=== PATIENT | female | born 1950 | race Caucasian/White ===

== ENCOUNTER 2016-08-24 08:56 | Observation (INO) | payer MEDICARE ==
[~2016-08-24] VITALS: Ht 162.6 cm; Wt 90.2 kg
[~2016-08-24 08:56] MED LIST: ESTR1TAB PO; LOVA20TA PO
[2016-08-24] MEDS ORDERED: PROPOFOL 200 MG/20 ML AMP IV ONE ×2 (09:04→12:00)
[2016-08-24] MEDS ORDERED: ONDANSETRON HCL 4 MG/2 ML VIAL IV PUSH ONE ×2 (09:04→12:00)
[2016-08-24] MEDS: LACTATED RINGER'S 1000 ML IV SCH ×2 (09:30→16:00)
[2016-08-24 09:31] VITALS: BP 128/76; PULSE 65; RESP 16; TEMP 98.4; O2SAT 98
[2016-08-24] MEDS ORDERED: CLINDAMYCIN 600 MG/NS 100 ML IV SCH ×2 (09:45)
[2016-08-24] MEDS ORDERED: GENTAMICIN INJ 120 MG in SODIUM CHLORIDE 0.9% INJ 100 ML IV SCH (09:45)
[2016-08-24 09:51] LABS: AUTOMATED NEUTROPHIL # 3.5 TH/MM3 (1.8-7.7); BASOPHIL % 0.6 % (0.0-2.0); EOSINOPHIL # 0.1 TH/MM3 (0-0.4); EOSINOPHIL % 1.5 % (0.0-4.0); HEMATOCRIT 39.3 % (35.0-46.0); HEMO FLAGS DIFF FINAL; LYMPH % 28.2 % (9.0-44.0); LYMPHOCYTE # 1.6 TH/MM3 (1.0-4.8); MEAN CORPUSCULAR HEMOGLOBIN 32.1 PG (27.0-34.0); MEAN CORPUSCULAR HGB CONC 34.5 % (32.0-36.0); MONO % 7.9 % (0.0-8.0); NEUT % 61.8 % (16.0-70.0); PLATELET COUNT 253 TH/MM3 (150-450); RED BLOOD COUNT 4.22 MIL/MM3 (4.00-5.30); RED CELL DISTRIBUTION WIDTH 12.3 % (11.6-17.2); WHITE BLOOD COUNT 5.7 TH/MM3 (4.0-11.0)
[2016-08-24] MEDS ORDERED: SODIUM CHLORIDE 0.9% 20 ML VIAL ONE ×2 (09:51→10:36)
[2016-08-24 09:56] LABS: BACTERIA, URINE FEW /hpf; BLOOD, URINE NEG (NEG); COMMENT (UR) CULT NOT INDICATED; CULTURE IF INDICATED CULT NOT INDICATED; GLUCOSE,URINE NEG (NEG); KETONE, URINE NEG (NEG); MUCUS URINE FEW /lpf (OCC); NITRITE,URINE NEG (NEG); PH, URINE 5.5 (5.0-8.5); SQUAMOUS EPITHELIAL CELL URINE <1 /hpf (0-5); URINE COLOR YELLOW (YELLW/STRAW)
[2016-08-24] MEDS ORDERED: ESTROGENS CONJUGATED VAG CREA 15 APPL/30 GM TUBE ONE ×2 (09:57→18:05)
[2016-08-24] MEDS ORDERED: MIDAZOLAM HCL 2 MG/2 ML VIAL ONE ×2 (10:00→18:39)
[2016-08-24] MEDS ORDERED: INSULIN HUMAN REGULAR 1,000 UNITS/10 ML VIAL SQ PRN (10:00)
[2016-08-24] MEDS ORDERED: ACETAMINOPHEN 1000 MG/100 ML VIAL IV ONE (10:00)
[2016-08-24] MEDS ORDERED: SODIUM CHLORID 0.9% 500 ML IV SCH (10:00)
[2016-08-24] MEDS ORDERED: DEXAMETHASONE SOD PHOS 4 MG/ML VIAL ONE (10:00)
[2016-08-24] MEDS ORDERED: METOPROLOL TARTRATE 25 MG TAB PO PRN (10:00)
[2016-08-24] MEDS ORDERED: FAMOTIDINE 20 MG/2 ML VIAL ONE (10:00)
[2016-08-24] MEDS ORDERED: fentaNYL CITRATE 250 MCG/5 ML AMP ONE (10:07)
[2016-08-24] MEDS ORDERED: VASOPRESSIN INJ 20 UNITS/ML VIAL ONE (10:37)
[2016-08-24] MEDS: KETOROLAC TROMETHAMINE 30 MG/ML (IVP) VIAL IV PUSH SCH ×2 (11:55→14:42)
[2016-08-24] MEDS ORDERED: ESTROGENS CONJUGATED VAG CREA 15 APPL/30 GM TUBE PV ONE (12:30)
[2016-08-24] MEDS ORDERED: DO NOT ADM ANY ANTICOAGULANT DRUGS XX PRN (13:15)
[2016-08-24] MEDS ORDERED: ONDANSETRON HCL 4 MG/2 ML VIAL IV PUSH PRN (13:15)
[2016-08-24] MEDS ORDERED: *morphine SULFATE 8 MG/ML PERIprocedure ONLY ONE (14:39)
[2016-08-24 16:56] LABS: HEMATOCRIT 37.6 % (35.0-46.0); REVIEW FLAG FINAL
[2016-08-24] MEDS ORDERED: GENTAMICIN SULFATE 80 MG/2 ML VIAL ONE (17:46)
[2016-08-24] MEDS ORDERED: CLINDAMYCIN PHOS 600 MG/4 ML VIAL ONE (17:46)
--- NOTE | 2016-08-24 17:49 | EKG ---
Date Performed: 08/24/2016 Time Performed: 09:25:00 PTAGE: 65 years EKG: Sinus rhythm MARKED LEFT AXIS DEVIATION VOLTAGE CRITERIA FOR LVH ABNORMAL ECG NO PREVIOUS TRACING DOCTOR: Gabriella Gramajo Interpretating Date/Time 08/24/2016 17:47:50
[2016-08-24 20:30] VITALS: BP 122/58; PULSE 71; RESP 17; TEMP 96.5; O2SAT 98
[2016-08-25] VITALS (8 sets, daily range): BP systolic 91–119; BP diastolic 49–57; PULSE 69–82; RESP 14–16; TEMP 96.2–97.5; O2SAT 97–99
[2016-08-25] MEDS: KETOROLAC TROMETHAMINE 30 MG/ML (IVP) VIAL IV PUSH SCH (00:06)
[2016-08-25] MEDS: traMADol HCL 50 MG TAB PO PRN ×3 (12:20→23:26)
--- NOTE | 2016-08-25 13:53 | HHI.PR ---
Subjective Remarks 65 y/o had multiple vaginal procedures yesterday: vaginal sacrocolpopexy, anterior and posterior colporrhaphy with graft, perineorrhaphy. About 4 hrs after surgery when preparing transfer to floor, PACU nurse noted patient bled through her vaginal packing. She was taken back to the OR, had packing removed and vagina was explored. Because the sacrocolpopexy was high and tight, exposure of the right lateral incision caused abrasion of the midline/left incision. A 2 cm gap in the right vaginal iscision was closed folllowed by oversewing of any abraded areas. The packing was removed this morning. An hour later the patient was unable to void, but bladder scan showed only 110 cc in the bladder. The patient complains of soreness high and medial on the right buttock when sitting, but sat on commode without discomfort. Wants to go home to her own environment. Objective Vital Signs Date Time Temp Pulse Resp B/P Pulse Ox O2 Delivery O2 Flow Rate FiO2 08/25/16 12:00 96.2 82 16 95/54 99 08/25/16 08:00 96.9 78 16 105/57 98 08/25/16 04:05 16 08/25/16 04:00 97.0 69 16 91/49 97 08/25/16 00:00 96.5 70 16 92/51 97 08/24/16 20:30 96.5 71 17 122/58 98 08/24/16 20:00 97.5 72 16 125/71 96 Room Air 08/24/16 19:45 67 17 127/72 100 Room Air 08/24/16 19:30 70 17 120/76 100 Nasal Cannula 2 08/24/16 19:15 71 14 126/76 100 Nasal Cannula 2 08/24/16 19:00 71 14 129/73 99 Nasal Cannula 3 08/24/16 18:50 97.5 85 14 135/72 98 Nasal Cannula 3 08/24/16 17:15 64 14 132/67 96 08/24/16 16:31 97.5 67 14 130/71 97 08/24/16 16:30 67 13 130/71 97 Room Air 08/24/16 16:15 97.5 85 13 129/69 97 Room Air 08/24/16 16:00 73 12 136/75 99 08/24/16 15:00 61 12 138/77 98 08/24/16 14:30 60 12 140/80 98 08/24/16 14:00 58 12 155/74 99 08/24/16 13:45 62 12 154/71 99 I/O 08/24/16 08/24/16 08/24/16 08/25/16 08/25/16 08/25/16 07:00 15:00 23:00 07:00 15:00 23:00 Intake Total 1300 ml 2245 ml 240 ml Output Total 375 ml 1565 ml 550 ml 350 ml Balance 925 ml 680 ml -310 ml -350 ml Intake Oral 545 ml 240 ml IV Total 1000 ml Other 1300 ml 700 ml Output Urine Total 1375 ml 550 ml 350 ml Estimated Blood Loss 75 ml 100 ml Other 300 ml 90 ml Bladder Scan Volume Amount 108 ml Result Diagram: 08/24/16 1630 Other Results Packing without fresh blood or clots. Objective Remarks Patient is clear to auscultation. Abdomen is soft. Buttocks examined without ecchymosis or lesion. Patient is vague about site of pain, being high and medial in right buttock. Medications and IVs Patient has been refusing pain medication and even anti-inflammatory. Her friend reports she complains of discomfort, then refuses medication. Encouraged regular use of anti-inflammatory, And Tramadol when pain exceeds Toradol relief. Assessment and Plan Discussed Condition With Patient and her friend Varshanehemiah Kate. Discharge Planning Patient is asked to remain in hospital another night for observation. If not improving in pelvic discomfort with progression of activity, I will recommend removal of her sutures. Radha Andrews MD Aug 25, 2016 13:53
[2016-08-25] MEDS ORDERED: ALPRAZolam 0.5 MG TAB PO PRN (14:00)
[2016-08-25] MEDS ORDERED: MAGNESIUM HYDROXIDE SUSP 30 ML CUP PO PRN (14:00)
--- NOTE | 2016-08-25 21:14 | MP ---
cc: RADHA ANDREWS MD DATE OF SURGERY: 08/25/2016. PREOPERATIVE DIAGNOSIS: Vaginal vault prolapse, enterocele, rectocele, cystocele. POSTOPERATIVE DIAGNOSIS: Vaginal vault prolapse, enterocele, rectocele, cystocele plus perineocele. OPERATIVE PROCEDURE PERFORMED: 1. Vaginal sacral colpopexy 2. anterior and posterior repair with graft material. 3. Enterocele repair. 4. Perineoplasty. SURGEON: Radha Andrews M.D. ANESTHESIA: Dr. Giraldo, general endotracheal anesthesia. COMPLICATIONS: None. ESTIMATED BLOOD LOSS: 75 cc. SPECIMENS: None. INDICATIONS FOR THE PROCEDURE: This 65-year-old has recently retired and has been bothered by a protruding vaginal vault for some time. She requests repair and understands the different surgical approaches and the pros and cons. FINDINGS: At the time of surgery, the patient was found to have a large enterocele. In addition, once under anesthesia with muscle relaxation, the rectocele was much more pronounced as was the perineocele. It was decided to incorporate all of these in the repair. DESCRIPTION OF THE PROCEDURE IN DETAIL: The patient was taken to the operating room and placed supine on the operating room table. After general endotracheal anesthetic, she was prepped and [facility] and a Morris catheter was placed. A weighted vaginal speculum was placed in the vagina and the sacrospinous ligament was palpated. The vaginal side wall was reached through the rectocele incision because it was noted that the rectocele was far more pronounced under anesthesia; therefore dilute vasopressin and saline were used to inject the entire posterior vaginal wall, right vaginal sidewall and anterior vaginal wall. The patient's scar from previous hysterectomy was identified and an incision was made from the vaginal introitus up to that scar. The incision was T'd at the distal end. The mucosa was dissected off the connective tissue sparing as much connective tissue as possible. The redundant edges were cut, In exposing the rectocele, it became evident that the patient's enterocele was quite large. Further dissection allowed delivery of the enterocele sac which was then opened to make sure that there was no bowel contained. It was closed as high as possible with a pursestring suture of #0 Vicryl. The rectocele could then be repaired, but first the vaginal side wall was dissected bluntly from the right sulcus. The ischial spine was palpated as was the sacrospinous ligament. Using a Capio device, a #1 Prolene was placed two fingerbreadths medial to the ischial spine on the sacrospinous ligament. Traction revealed an excellent purchase of that tissue. A surgeon's knot was tied to secure the suture to the sacrospinous ligament. Then using the attached needle, the vaginal mucosa was perforated and in the right fornix and then using a ten technique, the vagina was tied against the sacrospinous ligament producing good resolution of the cuff prolapse. The rectocele repair was then continued with reapproximation of the rectal mucosa; however, prior to this because of the large rectocele, Coloplast Human Graft Material was placed in the lower two thirds of the rectocele defect and secured with interrupted #0 Vicryl sutures to the lateral sulci bilaterally. The mucosa was then closed in running locked fashion overlying this rectocele and covering the graft material completely. A separate T-shaped incision was then made in the anterior vaginal wall after injection with more dilute Pitressin. The mucosa was dissected carefully again sparing as much connective tissue as possible. In the case of her anterior wall, there was less prolapse and after cutting redundant tissue, the incision was closed from the apex out to the urethra in running locked fashion without undue tension or plication. At this point, it was evident that the patient's vaginal opening was still patulous. Therefore a separate incision was made in the perineum after injection with more vasopressin. The bulbocavernosus of the labia majora were identified and rejoined at the perineal body with an 0 Vicryl suture. Three small subcutaneous bites were required to buttress the perineal body inferior to this suture. Then the first 3-0 Monocryl was used subcuticularly to reapproximate the mucosal edges on the perineum. The procedure then being satisfactory with good vaginal support, a packing was placed in the vagina to encourage healing and hemostasis. The patient was awakened and transferred to the recovery room breathing on her own. She tolerated the procedure well. Sponge, needle and instrument counts were correct. MD RENZO Baker/SHARLA /1:04 PM /8:59 PM BC
[2016-08-26] VITALS: BP 131/60; PULSE 72; RESP 16; TEMP 98.3; O2SAT 97
[2016-08-26 04:00] VITALS: BP 135/61; PULSE 69; RESP 16; TEMP 96.6; O2SAT 96
[2016-08-26 07:22] VITALS: O2SAT 93
[2016-08-26 08:00] VITALS: BP 120/58; PULSE 77; RESP 18; TEMP 96.9; O2SAT 93
--- NOTE | 2016-08-26 10:29 | HHI.DS ---
Discharge Summary Admission Date Aug 24, 2016 at 12:46 Admitting Diagnosis CBC/BMP: 08/24/16 1630 Significant Findings Laboratory Tests Test 08/24/16 09:35 Urine Turbidity HAZY (CLEAR) Urine Bacteria FEW /hpf (NONE) Urine Mucus FEW /lpf (OCC) PE at Discharge Patient is clear to auscultation. Abdomen is soft. Buttocks examined without ecchymosis or lesion. Patient is vague about site of pain, being high and medial in right buttock, but says it is definitely improved over yesterday. She is observed sitting, rising, walking and standing with normal function except the pain described when sitting. Hospital Course The patient underwent vaginal reconstruction as planned with the addition of graft for rectocele repair and perineoplasty. The need for these in addition to sacrocolpopexy, repair of enterocele and anterior colporrhaphy was not appreciated until vault suspended and examined with anesthesia. Patient lost very little blood during the original procedure, but had extrusion of clots and blood around packing when she was being readied for transfer to the floor for overnight observation per protocol. The blood loss was probably 400-500 cc including clots. She agreed to return to OR for exploration and repair. On return to OR the patient had general anesthesia by LMA. The surgical result of her initial repair produced a high and narrow vault. In addition to the small gap in one suture line discovered and closed, there was abrasion from packing and exploration, so areas of the other 2 vaginal incisions were closed as needed and oversewn. After re-packing and transfer to the PACU, patient said much of the pelvic pressure she experienced earlier was relieved. She denied sciatic pain before and after the second procedure. Post-operative day #1 the patient had trouble sitting in a chair and indicated diffuse pain to the right of her midline gluteal crease. She was admitted for continued observation to see if sacrocolpopexy suture was causing traction on the right sciatic nerve. This would require its removal. The following day she is ambulating in the halls without any pain medication. She says it is still uncomfortable to sit, but very significantly better than yesterday. The ecchymosis produced by her post-operative bleed would best explain her symptoms. She wants very much to go home. Pt Condition on Discharge: Good Discharge Disposition: Discharge Home Discharge Instructions DIET: Follow Instructions for: As Tolerated, No Restrictions Activities you can perform: Pelvic Rest Activities to avoid: Lifting/Bending, Bathing, Sexual Activity Radha Andrews MD Aug 26, 2016 10:29
--- NOTE | 2016-08-29 07:35 | MP ---
cc: RADHA ANDREWS MD DATE OF SURGERY 08/24/2016 This is a re-operation, so the patient has another op note dictated. PREOPERATIVE DIAGNOSIS Postoperative hemorrhage. POSTOPERATIVE DIAGNOSIS Postoperative hemorrhage with mucosal defect. SURGEON Radha Andrews MD STROKE BELT SANDER OPERATOR Nikita PROCEDURE Vaginal exploration and repair. SPECIMENS None ESTIMATED BLOOD LOSS 100 cc COMPLICATIONS None ANESTHESIA LMA, Dr. Austin INDICATIONS This 65-year-old had multiple procedures done for vaginal suspension today. She had a sacrospinous fixation through the vagina and an anterior colporrhaphy, a posterior colporrhaphy, enterocele repair and perineorrhaphy. Postoperatively, she did well in the recovery room until she was ready for transfer to the floor and the nurse noted a large amount of blood had extruded around the packing. On examining her, it was not the exterior sutures that were bleeding and therefore we knew she had to go back to the operating room. FINDINGS On exploration of the vagina, there was a span of approximately 2 cm in the mucosa that was not included in reapproximation. This was difficult to see and difficult to reach because of the surgery that was done previously being intended to make her vagina high, narrow and long. In the process of accessing this defect and closing it, several other suture lines were strained and these were oversewn as well. PROCEDURE The patient was taken to the operating room, placed supine on the operating room table. After general anesthesia by LMA, she was prepped and draped in Yellow-fin stirrups. The packing was removed and clots were noted high in the vagina. Using retractors and careful positioning, the sacral colpopexy sutures were found to be intact and not the source of the bleeding. However, just inferior to that in the right vaginal sulcus, there was a gap of approximately 2 cm of mucosal edge that had not been included in the approximation which was done with several different suture lines. This was then closed after the defect was explored for any active bleeding. The mucosal edges were closed in a running locked fashion with 2-0 Vicryl. The access to the mucosal defect strained two other suture lines and so these were also oversewn with 2-0 Vicryl in a running locked fashion. A clean packing was placed in the vagina. The Morris was left intact throughout the case. Sponge, needle and instrument counts were correct. The patient received 600 mg of Cleocin and 120 mg of gentamicin intraoperatively as prophylactic antibiotic. MD RENZO Baker/RONAL /7:09 PM /7:21 AM [email or web address]
== END 2016-08-26 12:15 | disposition home or self-care (01) ==
LOC: HSDC 08:56 → HOCA 12:46
PROVIDERS: ADMIT Obstetrics & Gynecology; ATTEND Obstetrics & Gynecology
DX: N81.4 Uterovaginal prolapse, unspecified (principal); N81.89 Other female genital prolapse; N81.5 Vaginal enterocele; N81.81 Perineocele; N81.6 Rectocele; N81.10 Cystocele, unspecified; N99.820 Postprocedural hemorrhage of a genitourinary system organ or structure following a genitourinary system procedure; Z01.810 Encounter for preprocedural cardiovascular examination
CPT/HCPCS: 00942; 57200; 57265; 57282; 81001; 85014; 85018; 85025; 93005; C2631; G0378; J0131; J1100; J1580; J1885; J2250; J2270; J2405; J3010; J7120